=== PATIENT | female | born 1945 | race Caucasian/White ===

== ENCOUNTER → 2017-11-01 | Outpatient (RCR) | payer OTHER ==
--- NOTE | 2017-11-01 15:34 | RS.OPPTEV2 ---
Date of Note: 10/27/17 Visit #: 1 Date of Evaluation: 10/27/17 Date of Onset/Injury/Change in Status: 08/28/17 Treatment Diagnosis: back pain History of Condition/Mechanism of Injury:: Patient reports low back pain since 08/28/17. States she had no specific injury. Prior Level of Function.....Patient was independent with: ADL's, Self Care, Caregiving, Ambulation/Mobility, Community Integration/Access Functional Limitations: Sleep, Self Care, ADL's, Reaching, Pushing, Pulling, Lifting, Carrying, Sitting, Standing, Bending, Squatting, Ambulation, Community Access/Integration Current Subjective/complaints:: Patient reports having pain in the lumbar spine and into the LE's. States pain began on the right side, but after a few weeks, went to the left side. Reports she was told she has a fracture in the lumbar spine, but was not given any specific information as to what kind of fracture or what level. States for a while, she could not stand to put her weight through her legs. She has been ambulating with a cane for a few months. States she uses it for stability. Reports difficulty standing or walking. State she is unable to tolerate household activities that require her to stand very long or bend and lift. 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 States she does not get out and go anywhere because she cannot walk very far. States she gets very little sleep. Reports waking up all the time due to back pain or with a migraine. Reports leg weakness and occasional tingling in the LE 's. Medical History Medical History: COPD, Arthritis Medical History Comments:: Fibromyalgia, Osteoporosis, metatarsalgia, plantar fasciitis Smoking Status: Current every day smoker Hx Home Medications: Takes 1/2 a benadryl PRN to help her sleep. Patient's Goals: Her goal is to get relief of back and leg pain. She would also like to be able to walk without the cane. Pain Assessment - Pain Description Pain Location: low back pain Current Pain Intensity: 6/10 Worst Pain Intensity: 9/10 Functional Outcome Measure Oswestry LBP: 74 - G Codes & Severity Modifier G Codes & Modifier: Mob current CL. Mob goal CJ Source of G Code score: Oswestry Observation - Observation Posture: Decreased Lumbar Lordosis Handedness: Right Gait - Gait Pattern Gait Comments: Patient ambulates independently with a straight cane (hurrycane) in the right hand. She demonstrates decreased stance phase on the left LE and decreased left hip and knee flexion during swing phase. - ROM Lumbar Flexion: Hand reach to Mid-Thighs Sidebending to Left: Reach to Mid-thigh Sidebending to Right: Reach to Mid-thigh Lumbar Spine ROM Limitations: Pain Comments: Patient demonstrates hypomobility of the lumbar spine with lumbar flexion. Reports pain at end range. Lumbar extension is limited by pain. Tolerates ~ 10-15 degrees beyond neutral. Demonstrates functional AROM of bilateral LE's. - Strength Trunk Lateral Flexion: 4- Good- Trunk Rotation: 4- Good- Comments: Left hip 4-/5 throughout, quads and HS 4/5, ankle 4+/5. Right LE generally 4+/5 throughout. - Special Tests REBEKAH Test: Negative Right, Positive Left SLR Test: Negative Left, Negative Right Seated Dural Stretch Test: Negative Left, Negative Right SI Joint Compression: Negative Palpation Comments:: Demonstrates moderate muscle guarding along the lumbar paraspinals, bilaterally. Reports tenderness over the left lumbosacral region. Sensation - Sensation Comments: Currently reports no numbness. States right LE is generally more sensitive to light touch, compared to the Left LE. Additional Comments: Additional Comments: SLR in supine: Left is slightly tighter, Left to 45 degrees, Right to 50 degrees. Left hip tight with attempts at figure 4 position. Right hip WFL's. Interventions - Exercise/Activities/Manual Therapy Exercises/Activities: None given at this time. Discussed and demonstrated back safety with bending over, such as squatting or kicking one leg back, instead of bending straight over. Patient with questions about a back brace/support. Explained to patient that she should not wear a support constantly. Manual Therapy: NA - Charges Timed Code Treatment Minutes: 0 Total Treatment Time: 65 mins Procedures billed for this date of service:: EVAL Med EVALUATION COMPLEXITY LEVEL EVALUATION COMPLEXITY LEVEL: HISTORY: Medium (Fibromyalgia, neck surgery, Osteoporosis, metatarsalgia, plantar fasciitis), EXAM OF BODY SYSTEMS: Medium ( limitation of standing, walking, ADL's, sleep), CLINICAL PRESENTATION: Medium, CLINICAL DECISION MAKING: Medium Assessment Assessment: Patient presents to therapy with a diagnosis of low back pain. She reports pain that significantly limits her tolerance for walking and standing. Reports weakness in the legs. She is having to use a cane for ambulation for safety. She demonstrates potential to benefit from stretching to address imbalance in HS flexibility, and progress LE and trunk strengthening to improve her tolerance for standing and walking activities. Patient Education: Education of diagnosis, Body/Joint mechanics, Activity Modification, Education of Plan of Care Rehab Potential: Good Short Term Goals Goal #1: Pt independent and compliant in HEP. Goal to be met by: 11/13/17 Goal #2: SLR equal bilaterally. Goal to be met by: 11/13/17 Goal #3: Trunk strength to 4/5. Goal to be met by: 11/13/17 Mechanical Manager Goals Goal #1: Pt knows HEP and to continue ex's to maintain functional level at D/C. Goal to be met by: 12/04/17 Goal #2: Score on Oswestry improved to 54. Goal to be met by: 12/04/17 Goal #3: Pt able to load/unload laundry with minimal difficulty or discomfort. Goal to be met by: 12/04/17 Goal #4: Pt will amb. community distances with minimal low back pain. Goal to be met by: 12/04/17 Plan - Treatment to be Provided Procedures: Therapeutic Exercises, Therapeutic Activity, Patient Education Modalities: Electrical Stimulation, Cryotherapy, Hot Packs - Treatment Plan Frequency: 2-3 X week Duration: 4 weeks ORDER # VISITS AND/OR THROUGH DATE: 12/04/17 - Treatment Code (1) Low back pain Code(s): M54.5 - LOW BACK PAIN Qualifiers: Chronicity: acute Back pain laterality: right Sciatica presence: unspecified whether sciatica present Qualified Code(s): M54.5 - Low back pain
--- NOTE | 2017-11-02 08:48 | RS.OPPTDN ---
Subjective Date of Note: 11/01/17 Visit #: 2 Date of Evaluation: 10/27/17 Treatment Diagnosis: back pain Current Subjective/complaints:: Patient reports discomfort in low back and legs with stretching. She states she was told she had a fracture in the lumbar spine from tests done at Estephania's office. States the doctor's office that sent her for therapy did not mention a fracture. Xray report received from [facility] [place] mentions Mild L4-5 anterolisthesis. No mention of lumbar fracture. Interventions - Exercise/Activities/Manual Therapy Exercises/Activities: Patient received gentle stretching to bilateral HS, SKTC, piriformis, and lower trunk rotation. Performs isometric trunk rotation, hip flexion, hip adduction and abduction, 1 set of 10 reps. Also performed alternating hip flexion in hooklying without weight on LE's. Patient reported light cramping in LE's and soreness in the lower leg with therapist hand placement during stretching. Patient instructed in HS stretch for home. Demonstrated performing the exercise with use of a towel or sheet. Manual Therapy: NA - Charges Timed Code Treatment Minutes: 36 mins Total Treatment Time: 50 mins Procedures billed for this date of service:: Ex2 Assessment: Patient asks countless questions during therapy session. She is concerned that her PCP told her she had a fracture, but the doctor's office that referred her to therapy has not mentioned it. She feels that she does not know what is going on. Explained to patient that our department can request her tests from Estephania's office if she would like. Patient Education: Education of diagnosis Short Term Goals Goal #1: Pt independent and compliant in HEP. Goal to be met by: 11/13/17 Goal #2: SLR equal bilaterally. Goal to be met by: 11/13/17 Goal #3: Trunk strength to 4/5. Goal to be met by: 11/13/17 [facility] Goals Goal #1: Pt knows HEP and to continue ex's to maintain functional level at D/C. Goal to be met by: 12/04/17 Goal #2: Score on Oswestry improved to 54. Goal to be met by: 12/04/17 Goal #3: Pt able to load/unload laundry with minimal difficulty or discomfort. Goal to be met by: 12/04/17 Goal #4: Pt will amb. community distances with minimal low back pain. Goal to be met by: 12/04/17 Plan PLAN OF CARE EXPIRES ON:: 12/04/17 ORDER # VISITS AND/OR THROUGH DATE: 12/04/17 PLAN: Will contact Estephania's office regarding tests of lumbar spine.
== END ==
PROVIDERS: ATTEND Nurse Practitioner
DX: M54.40 Lumbago with sciatica, unspecified side (principal)

== ENCOUNTER 2017-11-03 14:23 | Outpatient (RCR) ==
--- NOTE | 2017-11-03 14:53 | RS.OPPTDN ---
Subjective Date of Note: 11/03/17 Visit #: 3 Date of Evaluation: 10/27/17 Treatment Diagnosis: back pain Current Subjective/complaints:: Patient reports she really had a hard time yesterday after the therapy session on Monday. States she has been really sore on the seat bones of both legs, but more on the left. Reports pain with stretching and attempts at isometric exercises today. Reports aching in the anterior hips and thighs with isometric hip adduction and abduction. Pain Assessment - Pain Description Pain Description: Aching Current Pain Intensity: not quantified, more pain today Interventions - Exercise/Activities/Manual Therapy Exercises/Activities: Patient received extra gentle stretching of SKTC, HS, and lower trunk rotation. Patient asks to stop the stretching due to increased discomfort during stretches. Attempted isometric hip adduction and abduction, ~ 5 reps of each. Patient reports aching in anterior hips and thighs with isometrics. No further exercises attempted due to reports of pain with activities. Discussed positioning in bed with pillows between knees if sidelying, and under her knees if lying on her back. Manual Therapy: NA HOME EXERCISE PROGRAM: HS stretch - Charges Timed Code Treatment Minutes: 18 mins Total Treatment Time: 25 mins Procedures billed for this date of service:: EX1 Assessment: Patient reports signficant soreness in her back and area that she describes to be the ischial tuberosity bilaterally. Reports hip and thighs aching anteriorly during exercises. Discussed she may need more time between visits so she will not be as sore on returns visits. Patient Education: Education of diagnosis, Body/Joint mechanics, Home Exercise Program, Home Safety, Activity Modification, Education of Plan of Care Short Term Goals Goal #1: Pt independent and compliant in HEP. Goal to be met by: 11/13/17 Goal #2: SLR equal bilaterally. Goal to be met by: 11/13/17 Goal #3: Trunk strength to 4/5. Goal to be met by: 11/13/17 National Coverage Specialist Goals Goal #1: Pt knows HEP and to continue ex's to maintain functional level at D/C. Goal to be met by: 12/04/17 Goal #2: Score on Oswestry improved to 54. Goal to be met by: 12/04/17 Goal #3: Pt able to load/unload laundry with minimal difficulty or discomfort. Goal to be met by: 12/04/17 Goal #4: Pt will amb. community distances with minimal low back pain. Goal to be met by: 12/04/17 Plan PLAN OF CARE EXPIRES ON:: 12/04/17 ORDER # VISITS AND/OR THROUGH DATE: 12/04/17 PLAN: continue progression of stretching and stability exercises as tolerated.
--- NOTE | 2017-11-07 11:14 | RS.CXNS ---
Date of scheduled appointment: 11/07/17 Type: Cancel Reason for Cancel/NS: Patient calls and speaks with PT about continued pain. She is going to contact her MD and obtain imaging from [facility].
--- NOTE | 2017-11-08 09:12 | RS.CSNOTE ---
PT Case Note Date of Note: 11/07/17 Title of document: Patient status Note: Patient calls to report more pain and states she is unsure if she should come for therapy appointment today. Reports increased pain since the initial evaluation. Reports pain in the area of the left ischial tuberosity. Reports more pain into the left LE. On her second appointment, patient received more gentle stretching, but asked to stop due to pain. Attempted isometrics the with spine in neutral, and she had increased pain with those as well. Informed patient we would notify her referring physician's office about her increased pain and inability to tolerate exercises in the department.
--- NOTE | 2017-11-10 13:26 | RS.CXNS ---
Date of scheduled appointment: 11/10/17 Type: Cancel Reason for Cancel/NS: Patient called to see if we had heard from her physician' s office about whether to hold therapy or not. She asked to reschedule until next week.
--- NOTE | 2017-11-14 13:40 | RS.QUICKDC ---
Discharge from PT Date of Discharge: 11/14/17 Number of Visits: 2 Reason for Discharge: Spoke with JOSE M Youngblood regarding the patients increased pain with exercises in therapy. Explained to him that she had reports of significant increased pain with gentle stretching and isometrics. Agreed that we would stop therapy at this time due to inability to tolerate exercises. She has an appointment with Pain Management in February. Goals not met secondary to lack of time.
== END 2017-12-02 ==
PROVIDERS: ATTEND Nurse Practitioner
DX: M54.40 Lumbago with sciatica, unspecified side (principal)

== ENCOUNTER 2017-12-14 15:48 | Outpatient (CLI) | END 2017-12-14 15:49 | disposition home or self-care (01) | LOC: LAB 15:48 | PROVIDERS: ATTEND Family Medicine | DX: M54.9 Dorsalgia, unspecified (principal); D64.9 Anemia, unspecified; E55.9 Vitamin D deficiency, unspecified; E05.90 Thyrotoxicosis, unspecified without thyrotoxic crisis or storm | CPT/HCPCS: 36415; 80053; 82306; 82728; 83540; 83550; 84439; 84443; 85027 ==

== ENCOUNTER 2019-05-01 15:00 | Outpatient (RCR) | payer OTHER ==
--- NOTE | 2019-04-05 11:20 | RS.CXNS ---
Date of scheduled appointment: 04/05/19 Type: Cancel Reason for Cancel/NS: States she had a spot cut off of her face and had 100 stitches and is not able to come into therapy.
--- NOTE | 2019-04-17 10:36 | RS.CXNS ---
Date of scheduled appointment: 04/17/19 Type: Cancel Reason for Cancel/NS: furniture delivered
--- NOTE | 2019-04-19 16:11 | RS.OPPTDN ---
Subjective Date of Note: 04/19/19 Visit #: 5 Number of visits approved by Insurance: Reassess at 10th Date of Evaluation: 03/18/19 Payer Source: MEDICARE Treatment Diagnosis: cervical pain, headaches Current Subjective/complaints:: Patient says she feels L side of her neck may be a little less tight, but asks me to look at it to see. She says it has been difficult for her to sleep lately related to her recent facial surgery. Patient states that she has been trying to stand against the wall to perform better posture and perform HEP. She does not rate her pain, but says it is painful to lay down and to rise back up from bed or reclined position and needs help. *Precautions: no ultrasound to cervical spine due to pt states she has metal in her neck. - Treatment Modality: Electrical Stim Unattended Parameters/Method Applied: Inclined. Hivolt 4 small pads to bilateral UT @ 65 pk volts x 20 mins Patient Position: Sitting - Heat/Cryotherapy Treatment: Hot Pack Comments:: cervical with estim Interventions - Exercise/Activities/Manual Therapy Exercises/Activities: see MT Manual Therapy: No MT today. Patient requested modalities to ease pain as she is having difficulty related to recent facial surgery. Instructed in wall postural positions and supine ROM to improve ROM. HOME EXERCISE PROGRAM: pt given written HEP including cervical retraction, scapular retraction as well as upper trap stretch - Charges Timed Code Treatment Minutes: 15 Total Treatment Time: 35 Procedures billed for this date of service:: hp, estim (un) Assessment: Lengthy conversation of diagnosis, anatomy, treatment, HEP, and assessed ROM. Patient demo continued moderate mm guarding to the L UT, however , it appears to be slightly less than previous session. Patient is not consistent with treatment. She has difficulty sleeping and migraines. Interruption of sleep is related to also facial procedure to remove basal cell carcinoma to the R side of her nose and cheek. Will reassess next visit and work on MT/ROM. May hold further therapy and allow her to follow up with her MD as she has not seen consistent progress and has not attended well. Patient Education: Education of diagnosis, Body/Joint mechanics, Home Exercise Program Short Term Goals Goal #1: Pt independent with initial HEP. 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
--- NOTE | 2019-04-22 13:12 | RS.CXNS ---
Date of scheduled appointment: 04/23/19 Type: Cancel Reason for Cancel/NS: pt called to cancel due to having appt in [place] at 2pm. Offered pt other appt options but she reports she cannot come in the morning and she can't be here 2 days in a row. pt has next appt scheduled 04/25/19 at 3pm.
--- NOTE | 2019-04-25 16:43 | RS.OPPTDN ---
Subjective Date of Note: 04/25/19 Visit #: 6 Number of visits approved by Insurance: Reassess at 10th Date of Evaluation: 03/18/19 Payer Source: MEDICARE Treatment Diagnosis: cervical pain, headaches Current Subjective/complaints:: Patient says she has continued tightness to both sides of her neck. States she is supposed to have a swallow study early next week. She says she is trying to sleep at night, but has difficulty with finding position to relieve her pain. Reports using heat at home to help with tightness. *Precautions: no ultrasound to cervical spine due to pt states she has metal in her neck. - Treatment Modality: Electrical Stim Unattended Parameters/Method Applied: 4 small pads Hivolt @ 65-70 pk volts x 20 mins Patient Position: Supine Comments: inclined, long sitting - Heat/Cryotherapy Treatment: Hot Pack (cervical with estim in longsitting) Interventions - Exercise/Activities/Manual Therapy Exercises/Activities: see MT Manual Therapy: Patient receives STM and gentle trigger point work to bilateral UT after estim. Gentle passive Cervical SB and rotation limited range. Patient very sensitive and tender throughout bilateral UT today. Assisted shoulder shrugs and scap adduction. Total minutes of Manual Therapy: 13 HOME EXERCISE PROGRAM: pt given written HEP including cervical retraction, scapular retraction as well as upper trap stretch - Charges Timed Code Treatment Minutes: 13 Total Treatment Time: 33 Procedures billed for this date of service:: hp, estim (un), MT Assessment: Patient continues with moderate pain level to the L and R side of her neck. She demo continued mm guarding bilaterally as well more so to the L with limited ROM. Even so, she does appear to have slightly less guarding to that L UT than last week and nalini PROM better today. Several trigger points are palpated to the above locations, but she did find relief with scap exercises. She was encouraged to continue heat and HEP with also trying them in supine so that she is more supported. Patient Education: Education of diagnosis, Body/Joint mechanics, Home Exercise Program, Education of Plan of Care Patient demonstrates compliance with HEP?: Yes (as able) Short Term Goals Goal #1: Pt independent with initial HEP. 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
--- NOTE | 2019-04-29 14:52 | RS.CXNS ---
Date of scheduled appointment: 04/29/19 Type: Cancel Reason for Cancel/NS: company over
--- NOTE | 2019-05-01 16:37 | RS.OPPTDN ---
Subjective Date of Note: 05/01/19 Visit #: 7 Number of visits approved by Insurance: Expires today Date of Evaluation: 03/18/19 Payer Source: MEDICARE Treatment Diagnosis: cervical pain, headaches Current Subjective/complaints:: Patient says the L side of her neck is slightly better with mm tightness, but remains with moderate to severe pain. She often will say she does not feel she is not any better regarding motion or pain. *Precautions: no ultrasound to cervical spine due to pt states she has metal in her neck. - Treatment Modality: Electrical Stim Unattended Parameters/Method Applied: 4 small electrodes hivolt @ 55-60 pk volts x 20 mins to bilateral UT Patient Position: Supine - Heat/Cryotherapy Treatment: Hot Pack Comments:: cervical with estim Interventions - Exercise/Activities/Manual Therapy Exercises/Activities: see MT Manual Therapy: Patient receives STM and gentle trigger point work to bilateral UT after estim in sitting propped upper body over bed. Gentle passive Cervical SB and rotation limited range. Patient assisted with reassessment for Neck Disability Index. She continues to be very sensitive and tender throughout bilateral UT today. Assisted shoulder shrugs and scap adduction and cervical retraction. Total minutes of Manual Therapy: 19 HOME EXERCISE PROGRAM: pt given written HEP including cervical retraction, scapular retraction as well as upper trap stretch - Objective Findings Observations,measurements,etc.: Neck Disability Index: 33/50 or 66% impairment (same as eval) - Charges Timed Code Treatment Minutes: 19 Total Treatment Time: 39 Procedures billed for this date of service:: hp, estim (un), MT Assessment: Patient demo no change for Neck Index compared to eval. She demo only slight decrease in mm guarding to the L UT allowing only 40 degrees for R rotation and 50 for L rotation. SB WFL and with less pain than rotation. She appears to be more aware of postural techiques and agrees to continue with HEP, these techniques, and using thermal agents to decrease her pain and possibly improve her mobility. She will be having a swallow study tomorrow and follow up with Dr. Jamison in May. Patient Education: Education of diagnosis, Body/Joint mechanics, Home Exercise Program, Education of Plan of Care Patient demonstrates compliance with HEP?: Yes Short Term Goals Goal #1: Pt independent with initial HEP. Goal to be met by: 04/10/19 Progress towards Goal:: Progressing Goal #2: Decrease muscle tightness/guarding in B upper trap Goal to be met by: 04/10/19 Progress towards Goal:: Progressing Comments:: only slight Goal #3: Decrease pain in cervical spine<6/10 Goal to be met by: 04/10/19 Progress towards Goal:: No Change Comments:: notes moderate to severe pain Media Consultant Outside Sales Goals Goal #1: Improve cervical ROM WFL's w less pain Goal to be met by: 05/01/19 Progress towards goal: Progressing (slight improvement with SB only) Goal #2: Improve neck disability index to < 25 Goal to be met by: 05/01/19 Progress towards goal: No Change Goal #3: 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 Patient demo no significant change and recommend discharge. Follow up with having swallow study tomorrow and appt with Dr. Jamison next month.
== END 2019-05-04 23:59 ==
PROVIDERS: ATTEND Family Medicine
DX: R13.10 Dysphagia, unspecified (principal); M54.2 Cervicalgia; R06.02 Shortness of breath